=== PATIENT | male | born 1985 | race American Indian/Alaskan Native ===

== ENCOUNTER 2017-11-30 08:18 | Emergency (ER) | payer MEDICAID, OTHER ==
[2017-11-30 08:34] VITALS: BMI 27.8
[2017-11-30 08:40] VITALS: BP 144/82; PULSE 94; RESP 20; O2SAT 99
[2017-11-30] MEDS ORDERED: Famotidine 20mg/50ml 20 MG/50 ML BAG IVPB STA (09:23)
[2017-11-30] MEDS ORDERED: Sodium Chloride 0.9% 1,000 ML IV STA (09:26)
--- NOTE | 2017-11-30 09:40 | ED PDOC ---
Arrival/HPI - General Chief Complaint: Medical Clearance Time Seen by Provider: 11/30/17 09:23 Historian: Patient - History of Present Illness Narrative History of Present Illness (Text): 11/30/17 09 pt p/w + 4 days onset of not feeling well; general fatigue/malaise/weakness; pt states after heavy drinking 4 days ago, he has not felt well since then; pt states intermittent nausea and vomiting, with most vomiting per day ~ 5 episodes , last vomiting was 1 day ago; pt states + shortness of breath, no fever/chills/ sweats, no chest pain/palpitations, mild epigastric abd pain/cramps, + no appetite, no urinary/bowel changes, no numbness/tingling, no fall/trauma/sick contact, no travel; pt is here for further eval; pt's without other complaints pt denied LOC PCP: [facility] [place] clinic pt moves around on wheelchair Time/Duration: < week (4 days) Symptom Onset: Sudden Symptom Course: Worsening Severity Level: Severe Activities at Onset: Rest Context: Home Past Medical History - Provider Review Nursing Documentation Reviewed: Yes - Travel History Have you recently traveled outside [place] w/in the past 3 mons?: No - Past History Past History: Non-Contributing - Infectious Disease Hx of Infectious Diseases: None - Tetanus Immunization Tetanus Immunization: Unknown - Cardiac Hx Cardiac Disorders: No - Pulmonary Hx Respiratory Disorders: No - Neurological Hx Neurological Disorder: No - HEENT Hx HEENT Disorder: No - Renal Hx Renal Disorder: No - Endocrine/Metabolic Hx Endocrine Disorders: No - Hematological/Oncological Hx Blood Disorders: No - Integumentary Hx Dermatological Disorder: No - Musculoskeletal/Rheumatological Hx Musculoskeletal Disorders: No - Gastrointestinal Hx Gastrointestinal Disorders: No - Genitourinary/Gynecological Hx Genitourinary Disorders: No - Psychiatric Hx Psychophysiologic Disorder: No Hx Substance Use: No - Surgical History Hx Orthopedic Surgery: Yes (RODs in R leg, AKA left leg) Other/Comment: hx of Right Leg SX. Left AKA. - Anesthesia Hx Anesthesia: Yes Family/Social History - Physician Review Nursing Documentation Reviewed: Yes Family/Social History: No Known Family HX Smoking Status: Current Some Days Smoker (+ cigar smoking) Hx Alcohol Use: Yes Hx Substance Use: No Hx Substance Use Treatment: No Allergies/Home Meds Allergies/Adverse Reactions: Allergies No Known Allergies Allergy (Verified 11/30/17 08:37) Review of Systems - Review of Systems Constitutional: Fatigue. absent: Night Sweats Eyes: Normal ENT: Normal Respiratory: SOB. absent: Normal, Cough, Sputum, Wheezing Cardiovascular: absent: Chest Pain Gastrointestinal: Nausea, Vomiting, Appetite Changes. absent: Abdominal Pain Genitourinary Male: Hematuria, Urinary Output Changes Musculoskeletal: Myalgias Skin: Normal Neurological: Dizziness. absent: Headache Endocrine: Normal Hemo/Lymphatic: Normal Psychiatric: Normal Physical Exam - Physical Exam Narrative Physical Exam (Text): 11/30/17 09:15 General: alert/awake, GCS = 15, oriented x 3, resting in bed, uncomfortable, cooperative, interactive; NAD Head: NC/AT EYE: PERRLA, EOMI, sclera anicteric, no nystagmus, no photophobia; visual field intact b/l Facial: WNL Oral: uvula/tongue are midline, no exudate/lesions, no drooling/stridor, no dysphonia; intact dentitions; mild dry oral mucosa NECK: intact ROM, no midline tenderness, no nuchal rigidity, no meningeal signs ; no step off Chest: CTA b/l, no w/r/r; no tachypenia, no accessory muscle use noted Cardiac: +S1, +S2, no m/r/r, no tachycardia Abdominal: +BS, soft/nd/nt, well nourished patient; no masses/rebound/guarding/ rigidity; no franco's sign, no mcburney's point tenderness Extremities: pt is s/p left AKA (old wound, well healed); intact ROM to rest of pt's limbs, strength 5/5 grossly intact in all limbs, neurovasc intact b/l; reflex +2/2; no pitting edema/swelling b/l; no Delmi's sign b/l BACK: no step off, no midline tenderness, NO crepitus, no gross deformities noted; Intact ROM SKIN: cap refill ~ 1 sec, no ulcerations, no petechiae, no rashes; no gross pallor noted NEURO: CNII-XII WNL, no facial asymmetries, no slurr speech, oriented x 3 NIH stroke scale ~ 0 Psych: normal insight, mild flat affect; follows command with ease Vital Signs Reviewed: Yes Vital Signs Pulse Resp BP Pulse Ox 11/30/17 08:39 94 H 20 144/82 99 Temperature: Afebrile Blood Pressure: Hypertensive Pulse: Regular Respiratory Rate: Normal Appearance: Positive for: Well-Appearing, Non-Toxic, Uncomfortable. No: Comfortable, Ill-Appearing, Unkept Pain Distress: None Mental Status: Positive for: Alert and Oriented X 3 - Systems Exam Head: Present: Atraumatic, Normocephalic Medical Decision Making ED Course and Treatment: 11/30/17 09:15 Impression: weakness, n/v, not feeling well in general i have consider all the differential diagnosis regarding pt's chief medical complaints/clinical findings, including but are not limited to: dehydration, ? viral syndrome; weakness A/P: dehydration, weakness, ? viral syndrome - labs - xray - ua - supportive care - observe/reevaluation 11/30/17 13:23 pt felt improved pt is hungry and would like to eat something vital signs stable 1400 pt tolerated po well pt is comfortable pt is not in any distress pt is made aware of his medical results pt is encouraged fluid hydration pt is encouraged AVOIDANCE of fatty foods, avoid alcohol, avoid smoking pt will follow up as directed pt will be discharged home Re-evaluation Time: 13:53 Reassessment Condition: Improved - Lab Interpretations Lab Results: 11/30/17 09:40 11/30/17 09:40 Lab Results 11/30/17 13:30: Urine Color Yellow, Urine Appearance Sl cloudy, Urine pH 7.0, Ur Specific [place] 1.015, Urine Protein 30 H, Urine Glucose (UA) Negative, Urine Ketones Trace H, Urine Blood Negative, Urine Nitrate Negative, Urine Bilirubin Negative, Urine Urobilinogen 0.2, Ur Leukocyte Esterase Negative, Urine RBC Pending, Urine WBC Pending 11/30/17 09:40: Sodium 140, Potassium 4.0, Chloride 99, Carbon Dioxide 26, Anion Gap 19, BUN 10, Creatinine 0.8, Est GFR ( Amer) > 60, Est GFR (Non- Af Amer) > 60, Random Glucose 99, Calcium 10.0, Total Bilirubin 0.6, AST 42, ALT 48, Alkaline Phosphatase 114, Total Creatine Kinase 382 H, CK-MB (CK-2) 2.4 , CK-MB (CK-2) % Cancelled, Total Protein 8.6 H, Albumin 4.9 H, Globulin 3.7, Albumin/Globulin Ratio 1.3, Lipase 372 H 11/30/17 09:40: PT 11.0, INR 0.96, APTT 28.6 11/30/17 09:40: WBC 5.0, RBC 4.99, Hgb 15.2, Hct 43.2, MCV 86.6, MCH 30.5, MCHC 35.2, RDW 13.5, Plt Count 237, MPV 9.9, Gran % 60.3, Lymph % (Auto) 30.4, [place] % (Auto) 6.5 H, Eos % (Auto) 2.6, Baso % (Auto) 0.2, Gran # 3.04, Lymph # (Auto ) 1.5, [place] # (Auto) 0.3, Eos # (Auto) 0.1, Baso # (Auto) 0.01 I have reviewed the lab results: Yes Interpretation: Abnormal lab values (mildly elevated CK and lipase) - RAD Interpretation Narrative RAD Interpretations (Text): 11/30/17 13:24 HISTORY: weakness, sob COMPARISON: No prior. TECHNIQUE: Chest PA and lateral FINDINGS: LUNGS: No active pulmonary disease. PLEURA: No significant pleural effusion identified. No pneumothorax apparent. CARDIOVASCULAR: Normal. OSSEOUS STRUCTURES: No significant abnormalities. VISUALIZED UPPER ABDOMEN: Normal. OTHER FINDINGS: None. IMPRESSION: No active disease. Radiology Orders: 11/30/17 09:25 CHEST TWO VIEWS (PA/LAT) [RAD] Stat Fashion Designer: Radiologist - EKG Interpretation EKG Interpretation (Text): 11/30/17 13:25 NSR at 80 bpm, normal axis, no ectopy, inverted T in leads III, no st changes, ABNL EKG; no old ekg to compare with Interpreted by ED Physician: Yes Type: 12 lead EKG Comparison: No previous EKG avail. - Medication Orders Current Medication Orders: Discontinued Medications Famotidine (Pepcid 20mg/50ml Premix) 20 mg in 50 mls @ 100 mls/hr IVPB STAT STA Stop: 11/30/17 09:52 Last Admin: 11/30/17 09:41 Dose: 100 mls/hr eMAR Start Stop Document 11/30/17 09:41 MO (Rec: 11/30/17 09:42 MO [facility] [id number] Intravenous Solution Start Date 11/30/17 Start Time 09:41 End Date 11/30/17 End time 10:11 Total Infusion Time 30 Sodium Chloride (Sodium Chloride 0.9%) 1,000 mls @ 999 mls/hr IV .Q1H1M STA Stop: 11/30/17 10:26 Last Admin: 11/30/17 09:42 Dose: 999 mls/hr eMAR Start Stop Document 11/30/17 09:42 MO (Rec: 11/30/17 09:42 [facility] [id number]) Intravenous Solution Start Date 11/30/17 Start Time 09:42 End Date 11/30/17 End time 10:42 Total Infusion Time 60 Ondansetron HCl (Zofran Inj) 4 mg IVP STAT STA Stop: 11/30/17 09:24 Last Admin: 11/30/17 09:41 Dose: 4 mg IVP Administration Document 11/30/17 09:41 MO (Rec: 11/30/17 09:41 [facility] [id number]) Charges for Administration # of IVP Administrations 1 Disposition/Present on Arrival - Present on Arrival Any Indicators Present on Arrival: No History of DVT/PE: Yes History of Uncontrolled Diabetes: No Urinary Catheter: No History of Decub. Ulcer: No History Surgical Site Infection Following: None - Disposition Have Diagnosis and Disposition been Completed?: Yes Diagnosis: Nausea and vomiting, Dehydration, Weakness Disposition: HOME/ ROUTINE Disposition Time: 13:55 Patient Plan: Discharge Condition: STABLE Discharge Instructions (ExitCare): Weakness (ED), Dehydration, Adult (DC), Nausea and Vomiting, Adult (DC) Print Language: BAHRAINI Additional Instructions: Make sure to see your doctor in 1-2 days DRINK PLENTY OF FLUIDS take your medications as prescribed DONT SMOKE DONT DRINK alcohol DONT DO drugs if you do drugs RETURN TO ED IF worse pain, cant breath, persistent vomiting, high fever >101- 102 for hours, altered behavior, slurr speech, facial changes, focal weakness ( arm/leg or both), unable to urinate, heavy/persistent bleeding, passing out, chest pain, or other medical emergencies Prescriptions: Famotidine [Pepcid] 20 mg PO DAILY #14 tab Ibuprofen [Motrin] 400 mg PO QID PRN #30 tab PRN Reason: Pain, Mild (1-3) Ondansetron [Zofran Odt] 4 mg PO TID PRN #10 odt PRN Reason: Nausea/Vomiting Referrals: FAMILY PROVIDER,NO [Primary Care Provider] - Follow up with primary [facility] [Outside] - Follow up with primary [facility] [Outside] - Follow up with primary [facility] [place] [Outside] - Follow up with primary Mahad Ludwig DO [Staff Provider] - Follow up with primary Forms: [facility] (British)
[2017-11-30 11:09] LABS: BASO # 0.01 K/mm3 (0.0-2.0); BASO % 0.2 % (0.0-3.0); EOS # 0.1 (0.0-0.7); EOS % 2.6 % (1.5-5.0); GRAN # 3.04 (1.4-6.5); GRAN % 60.3 % (50.0-68.0); HEMOGLOBIN 15.2 g/dL (14.0-18.0); LYMPH # 1.5 (1.2-3.4); LYMPH % 30.4 % (22.0-35.0); MEAN CELL VOLUME 86.6 fl (80.0-105.0); MEAN CORPUSCULAR HEMOGLOBIN 30.5 pg (25.0-35.0); MEAN CORPUSCULAR HGB CONC 35.2 g/dl (31.0-37.0); MEAN PLATELET VOLUME 9.9 fl (7.0-11.0); MONO # 0.3 (0.1-0.6); MONO % 6.5 % (1.0-6.0); RBC 4.99 10^6/uL (3.5-6.1); RED CELL DISTRIBUTION WIDTH 13.5 % (11.5-14.5)
[2017-11-30 11:13] LABS: ALB/GLOB RATIO 1.3 (1.1-1.8); ALBUMIN 4.9 g/dL (3.0-4.8); ALT/SGPT 48 U/L (7-56); AST/SGOT 42 U/L (17-59); BLOOD UREA NITROGEN 10 mg/dL (7-21); GFR AFRICAN-AMERICAN > 60; GFR NON-AFRICAN AMERICAN > 60; LIPASE 372 U/L (23-300)
[2017-11-30 11:20] LABS: INR 0.96 (0.93-1.08); PARTIAL THROMBOPLASTIN TIME 28.6 Seconds (25.1-36.5)
[2017-11-30 11:29] LABS: CK-MB 2.4 ng/mL (0.0-3.6)
--- NOTE | 2017-11-30 12:10 | RAD ---
HISTORY: weakness, sob COMPARISON: No prior. TECHNIQUE: Chest PA and lateral FINDINGS: LUNGS: No active pulmonary disease. PLEURA: No significant pleural effusion identified. No pneumothorax apparent. CARDIOVASCULAR: Normal. OSSEOUS STRUCTURES: No significant abnormalities. VISUALIZED UPPER ABDOMEN: Normal. OTHER FINDINGS: None. IMPRESSION: No active disease.
--- NOTE | 2017-11-30 12:31 | CARD ---
APPROVED REPORT EKG Measurement Heart [id number] <Conclusion> Normal sinus rhythm Nonspecific T wave abnormality Abnormal ECG
[2017-11-30 13:48] LABS: URINE BILIRUBIN NEGATIVE (NEGATIVE); URINE BLOOD NEGATIVE (NEGATIVE); URINE GLUCOSE (UA) NEGATIVE (NEGATIVE); URINE LEUKOCYTE ESTERASE NEGATIVE Leu/uL (NEGATIVE); URINE PROTEIN 30 mg/dL (<30 mg/dL); URINE UROBILINOGEN 0.2 E.U./dL (<1 E.U./dL)
[2017-11-30 13:49] LABS: URINE APPEARANCE SL CLOUDY (CLEAR); URINE COLOR YELLOW (YELLOW)
[2017-11-30 13:54] LABS: URINE RBC NEGATIVE /hpf (0-2); URINE WBC NEGATIVE /hpf (0-6)
== END 2017-11-30 14:12 | disposition home or self-care (01) ==
LOC: ED 08:18
DX: R53.1 Weakness (principal); E86.0 Dehydration; R11.2 Nausea with vomiting, unspecified
CPT/HCPCS: 71046; 80053; 81001; 82550; 82553; 83690; 85025; 85610; 85730; 93005; 96365; 96375; 99282; J2405; J7030

== ENCOUNTER 2018-06-12 18:59 | Emergency (ER) | payer MEDICAID ==
[2018-06-12 18:59] VITALS: BMI 27.8
[2018-06-12 19:11] VITALS: TEMP 98.2
[2018-06-12] MEDS ORDERED: Sodium Chloride 0.9% 1,000 ML IV STA (19:30)
--- NOTE | 2018-06-12 20:11 | ED PDOC ---
Arrival/HPI - General Chief Complaint: Anxiety Time Seen by Provider: 06/12/18 19:25 Historian: Patient - History of Present Illness Narrative History of Present Illness (Text): 06/12/18 20:05 32 year old male with no significant past medical history presents to the emergency department complaining intermittent nausea associated with diarrhea and vomiting. Patient states he feels dehydrated and it is making him anxious. Patient thinks it is possibly something he ate that had upset his stomach. Patient denies any fever, chills, chest pain, shortness of breath, abdominal, urinary symptoms, back pain, neck pain, headache, dizziness, or any other complaints. PMD: Dr. Tono Valerio Symptom Onset: Gradual Symptom Course: Intermittent Activities at Onset: Light Context: Home Past Medical History - Provider Review Nursing Documentation Reviewed: Yes - Past History Past History: Non-Contributing - Infectious Disease Hx of Infectious Diseases: None - Tetanus Immunization Tetanus Immunization: Unknown - Cardiac Hx Cardiac Disorders: No - Pulmonary Hx Respiratory Disorders: No - Neurological Hx Neurological Disorder: No - HEENT Hx HEENT Disorder: No - Renal Hx Renal Disorder: No - Endocrine/Metabolic Hx Endocrine Disorders: No - Hematological/Oncological Hx Blood Disorders: No - Integumentary Hx Dermatological Disorder: No - Musculoskeletal/Rheumatological Hx Musculoskeletal Disorders: Yes Other/Comment: TRAUMATIC AMPUTATION OF L LEG - Gastrointestinal Hx Gastrointestinal Disorders: No - Genitourinary/Gynecological Hx Genitourinary Disorders: No - Psychiatric Hx Psychophysiologic Disorder: Yes Hx Anxiety: Yes Hx Substance Use: No - Surgical History Hx Orthopedic Surgery: Yes (RODs in R leg, AKA left leg) Other/Comment: hx of Right Leg SX. Left AKA. - Anesthesia Hx Anesthesia: Yes Family/Social History - Physician Review Nursing Documentation Reviewed: Yes Family/Social History: No Known Family HX Smoking Status: Current Some Days Smoker Hx Alcohol Use: Yes Hx Substance Use: No Hx Substance Use Treatment: No Allergies/Home Meds Allergies/Adverse Reactions: Allergies No Known Allergies Allergy (Verified 06/12/18 19:09) Home Medications: Home Meds Medication Instructions Recorded Confirmed RX: Baclofen [Lioresal] 10 mg PO PRN PRN 06/12/18 06/12/18 Review of Systems - Physician Review All systems were reviewed & negative as marked: Yes - Review of Systems Constitutional: absent: Fevers, Other (Chills) Respiratory: absent: SOB Cardiovascular: absent: Chest Pain Gastrointestinal: Diarrhea, Nausea, Vomiting. absent: Abdominal Pain Genitourinary Male: absent: Dysuria, Frequency, Hematuria Musculoskeletal: absent: Back Pain, Neck Pain Neurological: absent: Headache, Dizziness Psychiatric: Anxiety Physical Exam Vital Signs Reviewed: Yes Vital Signs Temp Pulse Resp BP Pulse Ox 06/12/18 19:10 98.2 F 98 H 18 142/88 100 Temperature: Afebrile Blood Pressure: Normal Pulse: Regular Respiratory Rate: Normal Appearance: Positive for: Well-Appearing, Non-Toxic, Comfortable Pain Distress: None Mental Status: Positive for: Alert and Oriented X 3 - Systems Exam Head: Present: Atraumatic, Normocephalic Pupils: Present: PERRL Extroacular Muscles: Present: EOMI Conjunctiva: Present: Normal Mouth: Present: Moist Mucous Membranes Neck: Present: Normal Range of Motion Respiratory/Chest: Present: Clear to Auscultation, Good Air Exchange. No: Respiratory Distress, Accessory Muscle Use Cardiovascular: Present: Regular Rate and Rhythm, Normal S1, S2. No: Murmurs Abdomen: No: Tenderness, Distention, Peritoneal Signs Back: Present: Normal Inspection Upper Extremity: Present: Normal Inspection. No: Cyanosis, Edema Lower Extremity: Present: Normal Inspection. No: Edema Neurological: Present: GCS=15, CN II-XII Intact, Speech Normal Skin: Present: Warm, Dry, Normal Color. No: Rashes Psychiatric: Present: Alert, Oriented x 3, Normal Insight, Normal Concentration Medical Decision Making ED Course and Treatment: 06/12/18 20:05 Impression: 32 year old male presents complaining of intermittent nausea associated with diarrhea and episode of vomiting. Plan: -- Labs -- Pepcid, IV Fluids, Zofran Inj -- VBG -- Dextrose -- Reassess and disposition Progress Not. 06/12/18 23:45 Leaving Against Medical Advice (AMA): The patient is choosing to leave against medical advice. I have personally explained to the patient that choosing to do so may result in permanent bodily harm, diability, or . I have discussed at great length that without further evaluation and monitoring there may be unforeseen circumstances and/or deterioration causing permanent bodily harm or as a result of their choice. The patient is alert, oriented, and shows the mental capacity to make clear decisions regarding the patients health care at this time. The patient continues to wish to leave against medical advice. In light of the patients decision to leave against medical advice, follow-up has been arranged and the patient is aware of the importance to following up as instructed. The patient has been advised that they should return to the emergency room immediately if they change their mind at any time, or if their condition begins to change or worsen in any way. - Lab Interpretations I have reviewed the lab results: Yes - Medication Orders Current Medication Orders: Sodium Chloride (Sodium Chloride 0.9%) 1,000 mls @ 999 mls/hr IV .Q1H1M STA Stop: 06/12/18 20:30 Discontinued Medications Famotidine (Pepcid) 20 mg IVP STAT STA Stop: 06/12/18 19:31 Ondansetron HCl (Zofran Inj) 4 mg IVP ONCE ONE Stop: 06/12/18 19:31 - Scribe Statement The provider has reviewed the documentation as recorded by the Snow Pena Provider Scribe Attestation: All medical record entries made by the Sabinoibelder were at my direction and personally dictated by me. I have reviewed the chart and agree that the record accurately reflects my personal performance of the history, physical exam, medical decision making, and the department course for this patient. I have also personally directed, reviewed, and agree with the discharge instructions and disposition. Disposition/Present on Arrival - Present on Arrival Any Indicators Present on Arrival: No History of DVT/PE: Yes History of Uncontrolled Diabetes: No Urinary Catheter: No History of Decub. Ulcer: No History Surgical Site Infection Following: None - Disposition Have Diagnosis and Disposition been Completed?: Yes Diagnosis: Dehydration, Vomiting, Diarrhea Disposition: AGAINST MEDICAL ADVICE Disposition Time: 00:30 Condition: STABLE Forms: user[employer]gents (Portuguese)
[2018-06-12 20:39] LABS: HEMOGLOBIN 16.8 g/dL (14.0-18.0); MEAN CELL VOLUME 88.7 fl (80.0-105.0); MEAN CORPUSCULAR HEMOGLOBIN 30.5 pg (25.0-35.0); MEAN CORPUSCULAR HGB CONC 34.4 g/dl (31.0-37.0); MEAN PLATELET VOLUME 9.7 fl (7.0-11.0); RBC 5.5 10^6/uL (3.5-6.1); RED CELL DISTRIBUTION WIDTH 14.1 % (11.5-14.5); WHITE BLOOD COUNT 3.7 10^3/uL (4.5-11.0)
[2018-06-12 20:45] LABS: ALB/GLOB RATIO 1.2 (1.1-1.8); ALBUMIN 5.2 g/dL (3.0-4.8); ALT/SGPT 26 U/L (7-56); AST/SGOT 29 U/L (17-59); BLOOD UREA NITROGEN 8 mg/dL (7-21); CALCIUM 10.1 mg/dL (8.4-10.5); GFR NON-AFRICAN AMERICAN > 60
[2018-06-12] MEDS ORDERED: Dextrose 50% SYRINGE Inj (50 ml) IVP ONE (21:18)
[2018-06-12 23:05] LABS: VENOUS BLOOD GAS BASE EXCESS -12.2 mmol/L (0.0-2.0); VENOUS BLOOD GAS PO2 139 mm/Hg (30-55)
[2018-06-13 00:51] LABS: BLOOD UREA NITROGEN 7 mg/dL (7-21); CALCIUM 9.6 mg/dL (8.4-10.5); GFR NON-AFRICAN AMERICAN > 60
[2018-06-13 02:00] VITALS: BP 118/62; PULSE 88; RESP 17; O2SAT 100
== END 2018-06-13 01:28 | disposition left against medical advice (07) ==
LOC: ED 18:59
DX: E86.0 Dehydration (principal); R11.2 Nausea with vomiting, unspecified; R19.7 Diarrhea, unspecified
CPT/HCPCS: 80048; 80053; 82803; 85027; 96361; 96374; 96375; 99285; J2405; J7030